=== PATIENT | male | born 1960 | race Caucasian/White ===

== ENCOUNTER 2018-09-30 22:14 | Inpatient (IN) | payer SELFPAY ==
[~2018-09-30] VITALS: Ht 182.9 cm; Wt 92.9 kg
[2018-09-30] MEDS ORDERED: morphine 4 MG/ML VIAL IV STA (22:46)
[2018-09-30] MEDS ORDERED: ONDANSETRON 4 MG INJ IV STA (22:46)
[2018-09-30] MEDS ORDERED: SOD CHLORIDE 0.9% 1,000 ML IV STA (22:46)
--- NOTE | 2018-09-30 22:57 | ERD ---
ER Documentation Chief Complaint Chief Complaint SYNCOPE, SLURRED SPEECH, LAC S/P FALL. HX OF MS HPI This is a 58-year-old male with a history of MS for the past 3 years who is here for a fall/syncope. The patient said he is fallen 3 times in the past several months however today he said that he let the dog out to go outside on the front porch and then he woke up on the ground. He says he vaguely recalls the feeling of falling but nothing after that. He called his business continuity specialist who came over and she said that when he called her he was completely talking gibberish and making no sense whatsoever. The onset of the fall was about an hour ago. She drove to his house and spent 20 minutes cleaning blood off of him and he was still talking gibberish but gradually began making more sense. She drove here and said during the drive is been things really started clearing up and now is back to making total sense. Patient is relatively amnestic to the event. He is only complaining of a crooked nose. The patient says his MS leaves him with severe numbness from the waist down. He has to self catheterize himself ROS All systems reviewed and are negative except as per history of present illness. Allergies Allergies: Coded Allergies: iodine (Verified Allergy, Mild, SWELLING, 10/01/18) PMhx/Soc History of Surgery: Yes (EYE SX) Anesthesia Reaction: No Hx Neurological Disorder: No Hx Respiratory Disorders: No Hx Cardiac Disorders: No Hx Psychiatric Problems: No Hx Miscellaneous Medical Probl: Yes (DM, MS, BOTOX SHOTS) Hx Alcohol Use: Yes Hx Substance Use: No Hx Tobacco Use: No Smoking Status: Never smoker FmHx Family History: No coronary disease Physical Exam Vitals Vital Signs Date Temp Pulse Resp B/P (MAP) Pulse Ox O2 O2 Flow FiO2 Time Delivery Rate 09/30/18 84 17 121/86 94 Room Air 23:48 (98) 09/30/18 97.2 97 18 130/88 96 22:20 (102) Physical Exam Const: Well-developed, well-nourished Head: Forehead lack, normocephalic Eyes: Normal Conjunctiva, PERRLA, EOMI, normal sclera, no nystagmus ENT: Normal External Ears, Nose and Mouth, moist mucus membranes deformity to nose. Neck: Full range of motion. No meningismus, no lymphadenopathy. Resp: Clear to auscultation bilaterally, no wheezing, rhonchi, rales Cardio: Regular rate and rhythm, no murmurs, S1 S2 present Abd: Soft, non tender x 4, non distended. Normal bowel sounds, no guarding or rebound, no pulsitile abdominal masses or bruits Skin: No petechiae or rashes, no ecchymosis , no maculopapular rash Back: No midline or flank tenderness Ext: No cyanosis, or edema, FROM x 4, normal inspection, neurovascularly intact x 4 Neur: Awake and alert, STR 5/5 x 4, decreased sensation from waist down upper body sensation intact,, cerebellum intact Psych: Normal Mood and Affect Result Diagram: 09/30/18223509/30/182235 Results 24 hrs Laboratory Tests Test 09/30/18 22:32 09/30/18 22:36 Bedside Glucose 109 mg/dL White Blood Count 8.0 10^3/ul Red Blood Count 4.22 10^6/ul Hemoglobin 14.8 g/dl Hematocrit 43.2 % Mean Corpuscular Volume 102.4 fl Mean Corpuscular Hemoglobin 35.1 pg Mean Corpuscular Hemoglobin Concent 34.3 g/dl Red Cell Distribution Width 12.5 % Platelet Count 354 10^3/UL Mean Platelet Volume 9.6 fl Immature Granulocytes % 0.500 % Neutrophils % 74.7 % Lymphocytes % 13.7 % Monocytes % 8.9 % Eosinophils % 1.7 % Basophils % 0.5 % Nucleated Red Blood Cells % 0.0 /100WBC Immature Granulocytes # 0.040 10^3/ul Neutrophils # 6.0 10^3/ul Lymphocytes # 1.1 10^3/ul Monocytes # 0.7 10^3/ul Eosinophils # 0.1 10^3/ul Basophils # 0.0 10^3/ul Nucleated Red Blood Cells # 0.0 10^3/ul Prothrombin Time 11.1 Sec Prothrombin Time Ratio 0.9 INR International Normalized Ratio 0.79 Activated Partial Thromboplast Time 28.6 Sec Sodium Level 144 mmol/L Potassium Level 3.7 mmol/L Chloride Level 105 mmol/L Carbon Dioxide Level 19 mmol/L Anion Gap 20 Blood Urea Nitrogen 15 mg/dl Creatinine 0.80 mg/dl Est Glomerular Filtrat Rate mL/min > 60 mL/min Glucose Level 111 mg/dl Calcium Level 9.8 mg/dl Troponin I < 0.012 ng/ml Current Medications Medications Dose Sig/Dasha Start Time Status Last (Trade) Ordered Route PRN Stop Time Admin Dose Reason Admin Sodium 1,000 ml @ Q1H STAT 09/30/18 DC 09/30/18 Chloride 1,000 mls/hr IV 22:46 23:01 09/30/18 23:45 Morphine 4 mg ONCE STAT 09/30/18 DC 09/30/18 Sulfate IV 22:46 23:00 (morphine) 09/30/18 22:51 Ondansetron 4 mg ONCE STAT 09/30/18 DC 09/30/18 HCl (Zofran IV 22:46 23:00 Inj) 09/30/18 22:51 100 ml @ ONCE ONCE 10/01/18 DC Levetiracetam 400 mls/hr IVPB 00:00 10/01/18 00:14 Procedures/MDM MR #: [id number] DOS: 09/30/18 2246 Ordering MD: JESUSITA MONROE DO Location: E/R Room/Bed: PROCEDURE: CT Brain without contrast. CLINICAL INDICATION: Syncope TECHNIQUE: A CT of the brain was performed on a multidetector CT scanner utilizing axial imaging from the skull base through the vertex without IV contrast. Multiplanar reformatted images were made. Images were reviewed on a PACS workstation. The CTDIvol is 40 mGy and the DLP is 714 mGycm. DICOM images are available. One or more of the following dose reduction techniques were utilized: 1.) Automated exposure control 2.) Adjustment of the mA +/- kV according to patient's size 3.) Use of iterative reconstruction technique. COMPARISON: None FINDINGS: There is moderate to severe diffuse cerebral volume loss with sulcal and ventricular dilatation. No discrete extra-axial fluid collection or masses present. Ventricles are in the midline and of normal configuration. There is periventricular white matter disease in both cerebral hemispheres. No associated mass effect is present. There is preservation of normal gross-white differentiation. No intracranial hemorrhage is seen. There is normal aeration of the visualized paranasal sinuses. IMPRESSION: Atrophy. Mild white matter disease compatible with chronic small vessel ischemia. No intracranial hemorrhage, mass or evidence of acute transcortical infarct. .Eric Hernandez MD, Date Time Electronically viewed and signed by .Eric Hernandez MD, MD on 09/30/2018 23:42 .A/ CC: JESUSITA MONROE DO [id number] Ordering MD: JESUSITA MONROE DO Location: E/R Room/Bed: PROCEDURE: Portable chest x-ray. CLINICAL INDICATION: Syncope. TECHNIQUE: Portable AP view of the chest. COMPARISON: None. FINDINGS: No pulmonary edema or conolidation is identified. The cardiac silhouette is magnified. No pleural effusion is seen. There is no pneumothorax. IMPRESSION: No evidence of acute cardiopulmonary disease. RPTAT: HTAR .Bryan Krishnamurthy MD, MD Date Time Electronically viewed and signed by .Bryan Krishnamurthy MD, on 09/30/2018 23:31 .R/ CC: JESUSITA MONROE DO [id number] Laceration Repair by me: Anesthesia: None Location: Right supraorbital Tendon/Joint/Nerves: No injury Foreign body: None detected after copious irrigation and exploration Technique: Dermabond Complexity: No subcutaneous sutures/mucosal repair/edge excision Post Closure Length: 4 cm Patient's bleeding was easily controlled in the department and there is no indication of anemia. No evidence of compartment syndrome, neurologic injury, vascular injury, open joint, tendon laceration, or foreign body. Patient is appropriate for outpatient follow up. EKG: Rate/Rhythm: Normal sinus rhythm nonspecific ST changes QRS, ST, QT: NORMAL UT, QRS, QT] Impression: Abnormal EKG Patient's syncopal symptoms are unstable at this time and require inpatient workup. No evidence of PE or dissection at this time but occult ischemia or fatal dysrhythmia cannot be ruled out. Differential diagnosis could be seizure, TIA/CVA. Patient is not a TPA candidate as he is symptoms are resolved within an hour and a half Departure Diagnosis: Primary Impression: Syncope Syncope type: unspecified Qualified Codes: R55 - Syncope and collapse Additional Impression: TIA (transient ischemic attack) Condition: Stable JESUSITA MONROE DO Sep 30, 2018 22:57
[2018-10-01] MEDS ORDERED: LEVETIRACETAM 1000 MG (PMX) 100 ML IVPB ONE
[2018-10-01] MEDS ORDERED: ONDANSETRON 4 MG INJ IV PRN ×2 (01:30→05:30)
[2018-10-01] MEDS ORDERED: ACETAMINOPHEN 325 MG TAB PO PRN ×2 (01:30→05:30)
[2018-10-01 02:30] VITALS: BP 126/78; PULSE 91; RESP 18
[2018-10-01 02:38] VITALS: PULSE 98
[2018-10-01] MEDS ORDERED: GABA600T15 PO (03:16)
[2018-10-01] MEDS ORDERED: ALPR0.5T PO (03:16)
[2018-10-01] MEDS ORDERED: ACYC200C2 PO (03:16)
[2018-10-01] MEDS ORDERED: OCRE300V IV (03:16)
[2018-10-01] MEDS ORDERED: DULO60CA6 PO (03:16)
[2018-10-01 04:00] VITALS: PULSE 93
[2018-10-01] MEDS ORDERED: ALBUTEROL/IPRATROPIUM (NEB) 3 ML AMP HHN PRN (05:30)
[2018-10-01] MEDS ORDERED: HYDROCODONE/APAP (5/325) TAB PO PRN ×2 (05:30)
[2018-10-01] MEDS ORDERED: NACL 0.9% 3 ML SYG IV SCH (05:30)
--- NOTE | 2018-10-01 05:33 | HP ---
Date/Time of Note Date/Time of Note DATE: 10/01/18 TIME: 05:25 Assessment/Plan VTE Prophylaxis SCD applied (from Nsg): Yes Pharmacological prophylaxis: NA/contraindicated Pharm contraindication: bleeding Lines/Catheters IV Catheter Type (from Nrsg): Saline Lock Urinary Cath still in place: No Assessment/Plan Assessment/Plan 1. Syncope -Vasovagal vs cardiac vs related to multiple sclerosis vs CVA -Check orthostatics -Head CT negative for acute findings -Continue telemetry monitoring -Trend troponin -MRI of the brain, carotid Doppler ultrasound and a 2D echo -PT and speech/swallow eval -EEG and Neurology consult 2. Bilateral nasal bone fracture: Secondary to trauma -Monitor for now. No difficulty breathing -ENT consult as needed 3. Multiple sclerosis: Continue home med -Neurology consult. see #1 4. Neurogenic bladder: Per patient this is a result of Botox injection to his bladder for incontinence. Patient self caths 5. Skin cancer (squamous and basal): cont treatment as outpt. 6. Metabolic acidosis: Status post IV fluid. Monitor for now Result Diagram: 09/30/18223509/30/186 Results 24hrs Laboratory Tests Test 09/30/18 22:32 09/30/18 22:36 Bedside Glucose 109 White Blood Count 8.0 Red Blood Count 4.22 L Hemoglobin 14.8 Hematocrit 43.2 Mean Corpuscular Volume 102.4 H Mean Corpuscular Hemoglobin 35.1 H Mean Corpuscular Hemoglobin Concent 34.3 Red Cell Distribution Width 12.5 Platelet Count 354 Mean Platelet Volume 9.6 Immature Granulocytes % 0.500 H Neutrophils % 74.7 Lymphocytes % 13.7 L Monocytes % 8.9 Eosinophils % 1.7 Basophils % 0.5 Nucleated Red Blood Cells % 0.0 Immature Granulocytes # 0.040 H Neutrophils # 6.0 Lymphocytes # 1.1 Monocytes # 0.7 Eosinophils # 0.1 Basophils # 0.0 Nucleated Red Blood Cells # 0.0 Prothrombin Time 11.1 L Prothrombin Time Ratio 0.9 INR International Normalized Ratio 0.79 Activated Partial Thromboplast Time 28.6 Sodium Level 144 Potassium Level 3.7 Chloride Level 105 Carbon Dioxide Level 19 L Anion Gap 20 H Blood Urea Nitrogen 15 Creatinine 0.80 Est Glomerular Filtrat Rate mL/min > 60 Glucose Level 111 Calcium Level 9.8 Troponin I < 0.012 HPI/ROS Admit Date/Time Admit Date/Time Oct 01, 2018 at 01:12 Hx of Present Illness This is a 58-year-old male with a history of multiple sclerosis, depression, obstructive uropathy, skin cancer who presented to ER complaining of fainting. He was outside walking his dog, but the next thing he remember he was on the ground. He does not remember what happens before the syncopal episode. He called a friend who stated that patient had a slurred speech and was not making sense. He did suffer nasal/face trauma and was bleeding. Patient reported that he had fallen down a few times for the past several months. He reported difficulty with his balance related to multiple sclerosis. Denied chest pain, shortness of breath, lightheadedness, focal weakness or facial droop. Patient self catheterizes himself. He said he was receiving Botox injection for incontinence, no resulting neurogenic bladder. When presented to ER, vitals were stable. Lab shows a bicarb of 19 otherwise basic labs WNL. Head CT was negative for acute findings. Face CT shows bilateral nasal bone fracture and left valdez deviation of the nose. PMH/Family/Social Past Medical History Medical History: other (See HPI) Medications Current Medications IV Flush (NS 3 ml) 3 ml PER PROTOCOL IV ; Start 10/01/18 at 05:30 Ondansetron HCl (Zofran Inj) 4 mg Q6H PRN IV NAUSEA/VOMITING; Start 10/01/18 at 05:30 Acetaminophen (Tylenol Tab) 650 mg Q6H PRN PO .PAIN 1-3 OR TEMP; Start 10/01/18 at 05:30 Acetaminophen/ Hydrocodone Bitart ([place] (5/325)) 1 tab Q6H PRN PO .PAIN 4-6; Start 10/01/18 at 05:30 Acetaminophen/ Hydrocodone Bitart ([place] (5/325)) 2 tab Q6H PRN PO .PAIN 7-10; Start 10/01/18 at 05:30 Heparin Sodium (Porcine) (Heparin (5000 Units/1ml)) 5,000 unit Q12 SC ; Start 10/01/18 at 09:00 Albuterol/ Ipratropium (Duoneb) 3 ml Q2H RESP THERAPY PRN HHN SHORTNESS OF BREATH; Start 10/01/18 at 05:30 Coded Allergies: iodine (Verified Allergy, Mild, SWELLING, 10/01/18) Past Surgical History Past Surgical Hx: other (See HPI) Family History Significant Family History: no pertinent family hx Social History Alcohol Use: none Smoking Status: Never smoker Drug Use: none Exam/Review of Systems Vital Signs Vitals Vital Signs Date Temp Pulse Resp B/P (MAP) Pulse Ox O2 O2 Flow FiO2 Time Delivery Rate 10/01/18 93 04:00 10/01/18 97.8 18 126/78 93 Room Air 02:30 (94) Intake and Output 09/30/18 09/30/18 10/01/18 1515:00 23:00 07:00 IntakeIntake Total 1100 ml BalanceBalance 1100 ml Exam Constitutional: alert, oriented, well developed Head: normocephalic, atraumatic Eyes: PERRL ENMT: other (Slightly right-sided laceration on the forehead. Nose is slightly deviated to the left) Cardiovascular: regular rate and rhythm Gastrointestinal: soft, non-tender Extremities: normal pulses SASKIA GOLDMAN MD Oct 01, 2018 05:33
[2018-10-01 08:00] VITALS: BP_SYST 129; BP_SYST 135; BP_SYST 142; BP_DIAS 82; BP_DIAS 83; BP_DIAS 88; PULSE 72; PULSE 82; PULSE 83; RESP 18
[2018-10-01 08:20] VITALS: PULSE 75
[2018-10-01] MEDS ORDERED: HEPARIN 5,000 UNIT/1 ML VIAL SC SCH (09:00)
--- NOTE | 2018-10-01 10:54 | PDOCDIS ---
Discharge Instructions CONDITION [id number] Patient Condition: [id number] Good HOME CARE INSTRUCTIONS: [id number] Diet Instructions: [id number] Regular ACTIVITY: Ohdyz8At Activity Restrictions: Skarj9u No Restrictions FOLLOW UP/APPOINTMENTS Follow-up Plan FOLLOW UP WITH YOUR PHYSICIANS SCHEDULED REY NIXON Oct 01, 2018 10:54
[2018-10-01 12:13] VITALS: PULSE 74
--- NOTE | 2018-10-01 15:11 | DS ---
Date/Time of Note Date/Time of Note DATE: 10/01/18 TIME: 15:03 Discharge Summary Admission/Discharge Info Admit Date/Time Oct 01, 2018 at 01:12 Discharge Date/Time Oct 01, 2018 at 13:42 Discharge Diagnosis 1. Syncope secondary to underlying relapsing MS -Patient's presentation is consistent with autonomic dysregulation and does report feeling dizzy when he gets up too fast -Head CT negative for acute findings -Carotid ultrasounds are negative -Patient is currently asymptomatic -The patient understands to get up slowly moving forward 2. Bilateral nasal bone fracture: Secondary to trauma from fall -Monitor for now. No difficulty breathing -Outpatient plastics or ENT consult if need be 3. Multiple sclerosis: Continue home med -Patient does follow-up with his neurologist and receives medications for MS 4. Neurogenic bladder: Per patient this is a result of Botox injection to his bladder for incontinence. Patient self caths 5. Skin cancer (squamous and basal): cont treatment as outpt. 6. Metabolic acidosis: Status post IV fluid. Patient Condition: Good Hospital Course Patient is a 58-year-old male with a history of MS on treatment, patient presents with a syncopal episode with subsequent facial laceration and bilateral nasal bone fracture. Patient did have a syncopal episode as well at 6 weeks prior, in both cases patient stood up too quick and felt dizzy prior to the episode. Patient is aware that he needs to get up slowly and this helps prevent syncope and dizziness but occasionally he forgets which is what happened in these 2 cases of syncope. Patient likely has autonomic dysfunction due to his MS. Current ultrasound and CT head were negative for acute findings, patient's dizziness did resolve and patient was stable for DC. Patient does have good follow-up with his neurologist and receives MRIs every 6 months as well as treatment, of note patient has relapsing MS. on the day of discharge patient's vitals, labs and physical exam are stable. Home Meds Reported Medications Gabapentin (GRALISE) 600 Mg Tab.er.24h, 1800 MG PO 10/01/18 Ocrelizumab (Ocrevus) 300 Mg/10 Ml Vial, 300 MG IV, VIAL 10/01/18 Alprazolam* (Xanax*) 0.5 Mg Tab, 0.5 MG PO QHS PRN for ANXIETY, TAB 10/01/18 Duloxetine Hcl* (Cymbalta*) 60 Mg Capsule.dr, 60 MG PO DAILY, CAP 10/01/18 Acyclovir* (Acyclovir*) 200 Mg Capsule, 200 MG PO 5 TIMES DAILY, CAP 10/01/18 Follow-up Plan FOLLOW UP WITH YOUR PHYSICIANS SCHEDULED Primary Care Provider Not On Staff Doctor Time spent on discharge: > 30 minutes REY NIXON Oct 01, 2018 15:11
--- NOTE | 2018-10-01 18:52 | RADRPT ---
Echocardiogram Report Patient Name: WADE MERAZPatient ID: [id number] : 1960 (58y 7m)Study Date: 10/01/2018 7:20:32 AM Gender: MAccession #: [id number] Tech: ChemaMarilin Hernández [facility] Location: [facility] Ref.Physician: SASKIA GOLDMAN Height(Cm): BSA: Weight(Kg): Quality: AdequateAccount #: Procedures: Echocardiographic Report: Transthoracic echocardiogram with complete 2D, M-Mode, and doppler examination. Indications: Syncope. Measurements: 2D/M Mode Doppler Measurement Value Normal Range Measurement Value Normal Range LVIDd 2D 5.1 [ 4.2 - 5.8 ] cm AV Peak All 1.5 [ 100.0 - 170.0 ] cm/sec LVIDs 2D 3.0 [ 2.5 - 4.0 ] cm AV Peak PG 9.0 [ 2.0 - 9.0 ] mmHg LVPWd 2D 1.3 [ 0.6 - 1.0 ] cm LVOT Peak All 1.3 [ 70.0 - 110.0 ] cm/sec IVSd 2D 1.3 [ 0.6 - 1.0 ] cm LVOT Peak PG 7.0 [ 2.0 - 6.0 ] mmHg AoR Diam 2D 4.1 [ 2.6 - 3.4 ] cm MV E Peak All 0.6 [ 60.0 - 130.0 ] cm/sec EDV 2D 124.0 [ 62.0 - 150.0 ] ml MV A Peak All 0.7 [ 100.0 - 120.0 ] cm/sec ESV 2D 34.2 [ 21.0 - 61.0 ] ml MV E/A 0.8 [ 0.8 - 1.5 ] ratio EF 2D 72.4 [ 52.0 - 72.0 ] percent MV Decel Time 257 [ 104 - 258 ] msec LA Dimen 2D 3.7 [ 3.0 - 4.0 ] cm Lat E` All 0.1 [ 10.0 - 15.0 ] cm/sec Lateral E/E` 5.2 [ 1.0 - 2.0 ] ratio MV E/A 0.8 [ 0.8 - 1.5 ] ratio TR Peak All 2.8 [ 100.0 - 280.0 ] cm/sec TR Peak PG 32.0 mmHg RVSP 40.0 [ 10.0 - 36.0 ] mmHg RA Pressure 8.0 mmHg Findings: Left Ventricle: Normal left ventricular systolic function. Normal left ventricular cavity size. Mild concentric left ventricular hypertrophy. Ejection fraction is visually estimated at 60-65 %. Tissue Doppler/Mitral Doppler indices are consistent with impaired relaxation (Stage I diastolic dysfunction). Right Ventricle: Normal right ventricular size. Normal right ventricular systolic function. Left Atrium: The left atrium is normal in size. Right Atrium: The right atrium is normal in size. Mitral Valve: Normal appearance and function of the mitral valve with trace physiologic regurgitation. Aortic Valve: Normal appearance of the aortic valve. No significant aortic stenosis or insufficiency. Tricuspid Valve: Normal appearance of the tricuspid valve. Estimated peak PA systolic pressure 40 mmHg. There is trace tricuspid regurgitation. Pulmonic Valve: Normal pulmonic valve appearance. Pericardium: Normal pericardium with no significant pericardial effusion. Aorta: Normal aortic root. IVC: Dilated IVC with respiratory collapse consistent with elevated right atrial pressure. Conclusions: Normal left ventricular systolic function. Normal left ventricular cavity size. Mild concentric left ventricular hypertrophy. Ejection fraction is visually estimated at 60-65 %. Tissue Doppler/Mitral Doppler indices are consistent with impaired relaxation (Stage I diastolic dysfunction). Normal appearance and function of the mitral valve with trace physiologic regurgitation. Normal appearance of the tricuspid valve. Estimated peak PA systolic pressure 40 mmHg. There is trace tricuspid regurgitation. Electronically Signed By: Von Flowers 2018-10-01 18:51:52 PST
== END 2018-10-01 13:42 | disposition home or self-care (01) | DRG 312 ==
LOC: E/R 22:14 → TEL 10-01 01:12
PROVIDERS: ADMIT Internal Medicine; ATTEND Internal Medicine
DX: R55 Syncope and collapse (principal); E87.2 Acidosis; S02.2XXD Fracture of nasal bones, subsequent encounter for fracture with routine healing; I05.0 Rheumatic mitral stenosis; N31.2 Flaccid neuropathic bladder, not elsewhere classified; C44.301 Unspecified malignant neoplasm of skin of nose
CPT/HCPCS: 36415; 70450; 70486; 71045; 80048; 80053; 80061; 82550; 82553; 82962; 83036; 83735; 84443; 84484; 85025; 85610; 85730; 92610; 93005; 93306; 93880; 96361; 96374; 96375; J1644; J1953; J2270; J2405; J7030